=== PATIENT | male | born 1985 | race African-American/Black ===

== ENCOUNTER 2021-11-12 05:06 | Emergency (ER) | payer OTHER ==
[2021-11-12 05:13] VITALS: RESP 18
--- NOTE | 2021-11-12 05:40 | ED ---
Upper Extremity HPI - General Chief Complaint: Extremity Injury, Upper Stated Complaint: Right hand injury - [facility] Time Seen by Provider: 11/12/21 05:09 Source: patient, RN notes reviewed, old records reviewed Mode of arrival: ambulatory Limitations: no limitations - History of Present Illness Initial Comments: This is a 36-year-old male does not want to participate history taking presents today for evaluation Malia pain is work related injury. Seems to be a crush injury O patient is unsure of exact event to cause this injury. No other injuries noted. No medical history takes no medications MD Complaint: Injury to:: right, hand, finger -: hour(s) Other Extremity Injury: Fingers: Right Other Injuries: none Handedness: right Place: work Severity scale (1-10): 4 Improves With: none Worsens With: none Context: direct blow Associated Symptoms: denies other symptoms Treatments Prior to Arrival: cold therapy - Related Data Allergies Allergy/AdvReac Type Severity Reaction Status Date / Time No Known Allergies Allergy Verified 11/12/21 05:13 Review of Systems ROS Statement: Those systems with pertinent positive or pertinent negative responses have been documented in the HPI. ROS Other: All systems not noted in ROS Statement are negative. Past Medical History Past Medical History: No Reported History History of Any Multi-Drug Resistant Organisms: None Reported Past Surgical History: No Surgical Hx Reported Past Psychological History: No Psychological Hx Reported Smoking Status: Current every day smoker Past Alcohol Use History: None Reported Past Drug Use History: None Reported General Exam Limitations: no limitations General appearance: alert, in no apparent distress Head exam: Present: atraumatic, normocephalic, normal inspection Eye exam: Present: normal appearance, PERRL, EOMI. Absent: scleral icterus, co njunctival injection, periorbital swelling ENT exam: Present: normal exam, mucous membranes moist Neck exam: Present: normal inspection. Absent: tenderness, meningismus, lymphadenopathy Respiratory exam: Present: normal lung sounds bilaterally. Absent: respiratory distress, wheezes, rales, rhonchi, stridor Cardiovascular Exam: Present: regular rate, normal rhythm, normal heart sounds. Absent: systolic murmur, diastolic murmur, rubs, gallop, clicks GI/Abdominal exam: Present: soft, normal bowel sounds. Absent: distended, tenderness, guarding, rebound, rigid Extremities exam: Present: tenderness (Tenderness over right fifth little finger), normal capillary refill. Absent: pedal edema, joint swelling, calf tenderness Back exam: Present: normal inspection Neurological exam: Present: alert, oriented X3, CN II-XII intact Psychiatric exam: Present: normal affect, normal mood Skin exam: Present: warm, dry, intact, normal color. Absent: rash Course Vital Signs 11/12/21 11/12/21 05:10 06:29 Temperature 97.8 F 97.5 F L Pulse Rate 70 66 Respiratory 18 18 Rate Blood Pressure 110/54 117/56 O2 Sat by Pulse 99 94 L Oximetry - Reevaluation(s) Reevaluation #1: 11/12/21 Medical record is reviewed Reevaluation #2: 11/12/21 Patient has been requiring pain medication or sleeping throughout exam Reevaluation #3: 11/12/21 Patient informed results and questions are answered Medical Decision Making - Medical Decision Making 36 male with phalanx fracture of little finger. Patient will follow-up with [facility] in 2-3 days for further evaluation regarding work - Radiology Data Radiology results: report reviewed (X-ray shows Phalanx fracture little finger), image reviewed Disposition Clinical Impression: Fracture of phalanx of right little finger Disposition: HOME SELF-CARE Condition: Good Instructions (If sedation given, give patient instructions): Finger Fracture (ED) Is patient prescribed a controlled substance at d/c from ED?: No Referrals: Taj Leblanc DO [Doctor of Osteopathic Medicine] - 1-2 days
--- NOTE | 2021-11-12 06:01 | XR ---
EXAMINATION TYPE: XR hand complete RT DATE OF EXAM: 11/12/2021 CLINICAL HISTORY: Pain worse and fifth finger after injury. TECHNIQUE: Frontal, lateral and oblique images of the right hand are obtained. COMPARISON: None. FINDINGS: There is deformity to the fifth right metacarpal with abnormal palmar and radial angulation but no linear lucency to suggest acute fracture. Osseous overlap makes evaluation on lateral view s lightly suboptimal. There is acute oblique intra-articular fracture through the proximal meta-epiphys is of the fifth distal phalanx with focal mild associated soft tissue swelling. Focal mild/moderate s oft tissue swelling at the PIP joints greatest involving the third digit without additional acute fra cture. IMPRESSION: New acute oblique minimally displaced intra-articular fracture base of fifth distal phala nx.
[2021-11-12 06:31] VITALS: BP 117/56; PULSE 66; TEMP 97.5
== END 2021-11-12 06:31 | disposition home or self-care (01) ==
LOC: EC 05:06
DX: S62.636A Displaced fracture of distal phalanx of right little finger, initial encounter for closed fracture (principal); F17.200 Nicotine dependence, unspecified, uncomplicated; W23.0XXA Caught, crushed, jammed, or pinched between moving objects, initial encounter; Y99.0 Civilian activity done for income or pay
CPT/HCPCS: 99283

== ENCOUNTER → 2021-11-14 | Outpatient (CLI) | payer OTHER ==
--- NOTE | 2021-11-14 12:40 | XR ---
EXAMINATION TYPE: XR wrist complete RT DATE OF EXAM: 11/14/2021 CLINICAL HISTORY: pain TECHNIQUE: Frontal and lateral images of the right forearm are obtained. COMPARISON: None. FINDINGS: There is no acute fracture/dislocation evident. The joint spaces appear within normal limi ts. The overlying soft tissue appears unremarkable. IMPRESSION: There is no acute fracture or dislocation. ICD 10 NO FRACTURE, INITIAL EVALUATION
== END | disposition home or self-care (01) ==
LOC: RADXRMAIN 11:59
PROVIDERS: ATTEND Emergency Medicine
DX: M25.531 Pain in right wrist (principal)

== ENCOUNTER 2021-11-17 12:24 | Emergency (ER) | payer OTHER ==
[2021-11-17 12:42] VITALS: BP 107/73; PULSE 88; RESP 18; TEMP 98.2
== END 2021-11-17 14:47 | disposition left against medical advice (07) ==
LOC: EC 12:24
DX: Z01.10 Encounter for examination of ears and hearing without abnormal findings (principal); I20.9 Angina pectoris, unspecified; R10.9 Unspecified abdominal pain; Z53.21 Procedure and treatment not carried out due to patient leaving prior to being seen by health care provider
CPT/HCPCS: 87502; 87635